=== PATIENT | female | born 2000 | race Two or more races ===

== ENCOUNTER 2021-11-10 07:01 | Inpatient (IN) | payer OTHER ==
[~2021-11-10] VITALS: Ht 165.1 cm; Wt 77.1 kg
[2021-11-10] MEDS ORDERED: PRENATAL TABLE1 EAC3 PO (09:58)
[2021-11-12] MEDS ORDERED: NAPR500T14 PO (07:28)
== END 2021-11-12 12:05 | disposition home or self-care (01) | DRG 807 ==
LOC: OB/GYN 07:01 → LDR 07:01 → OB/GYN 14:01
PROVIDERS: ADMIT Obstetrics & Gynecology; ATTEND Obstetrics & Gynecology
PROC: 10E0XZZ Delivery of Products of Conception, External Approach (ICD-10-PCS; principal; 2021-11-10)
PROC: 4A1HXCZ Monitoring of Products of Conception, Cardiac Rate, External Approach (ICD-10-PCS; 2021-11-10)
DX: O66.0 Obstructed labor due to shoulder dystocia (principal); Z37.0 Single live birth; Z20.822 Contact with and (suspected) exposure to COVID-19; Z3A.39 39 weeks gestation of pregnancy